=== PATIENT | female | born 1970 | race Caucasian/White ===

== ENCOUNTER → 2018-10-25 10:00 | Outpatient (CLI) | payer OTHER, SELFPAY ==
--- NOTE | 2018-10-25 10:05 | MM_ITS ---
MM Dig screening mamm BI w/CAD ORDERING PHYSICIAN : Lizzy Santana MD PATIENT AGE: 48 years GENDER: Female COMPARISON: March 2011 and September 2012 INDICATION: ITS.REASON: Routine Screening Mammogram TECHNIQUE: Standard CC and MLO images were obtained. R2 CAD reviewed. Additional axillary cc views both breast FINDINGS: Moderately dense inhomogeneous breast pattern. . Between the multiple views was see no persistent density of concern. Areas minimal density seen seen on on one view view dissipates on the on the other views including axillary cc view,. Overall breast densities & pattern keeping with previous studies... No suspicious calcifications. No suspicious nodule or density. No suspicious/or significant appearing new findings... Bilateral follow-up in one year adequate.. And suggest be emphasized and encouraged. IMPRESSION: Moderately dense heterogeneous breast but with no suspicious or discrete new areas of concern . Bilateral follow-up in one year recommended and should be encouraged BI-RADS Category: 2 Benign Finding(s) RECOMMENDED FOLLOW-UP: IMM - IMMEDIATE FOLLOW-UP RECOMMENDED (A letter has been sent to the patient regarding results of the study.)
== END ==
PROVIDERS: PCP Family Medicine; Visit Provider Obstetrics & Gynecology
DX: Z12.31 Encounter for screening mammogram for malignant neoplasm of breast (principal)
CPT/HCPCS: 77067

== ENCOUNTER → 2020-08-08 13:50 | Outpatient (CLI) | payer OTHER, SELFPAY ==
--- NOTE | 2020-08-08 13:59 | US_ITS ---
PROCEDURE: US SOFT TISSUE HEAD AND NECK CLINICAL INDICATION: LYMPHADENITIS, ACUTE COMPARISON: No exams were available for comparison FINDINGS: In the right aspect of the neck there is a hypoechoic nodule measuring 17 x 6 mm and may be due to a hypoechoic lymph node corresponding to the area of palpable concern. There is some internal blood flow. Other smaller nodes are present as well. On the left, there is a lymph node along the inferior aspect of the parotid measuring 6 mm. IMPRESSION: Bilateral cervical lymph nodes. The palpable abnormality on the right corresponds to a 17 x 6 mm hypoechoic nodule which may represent a lymph node Dictated by: Dave Manning MD 08/08/2020 17:44 Dave Manning MD in [place] 08/08/2020 17:44
== END ==
PROVIDERS: PCP Family Medicine; Visit Provider Nurse Practitioner
DX: L04.9 Acute lymphadenitis, unspecified (principal)
CPT/HCPCS: 76536

== ENCOUNTER → 2020-11-04 15:35 | Outpatient (CLI) | payer OTHER, SELFPAY ==
--- NOTE | 2020-11-04 15:38 | MM_ITS ---
PROCEDURE: MM DIG SCREENING MAMM BI W/CAD Referring Doctor: Lizzy Santana Patient Age:50Y CLINICAL INDICATION: Routine Screening Mammogram 50-year-old No new complaints and no hormones. Family history mother with breast cancer age 60 postmenopausal but COMPARISON: MG MAMMO SCREENING BILATERAL from 03/31/2011 MG MAMMO SCREENING BILATERAL from 10/04/2012 MG [facility] MM Dig screening mamm BI w/CAD from 10/25/2018 TECHNIQUE: Standard CC and MLO images were obtained. R2 CAD reviewed. Bilateral digital breast tomosynthesis included. FINDINGS: Breast of moderate density bilaterally with no new dominant nor suspicious mass CAD computer review highlights no areas of significant concern Right breast: No new areas of significant concern. Minor nodularity superior retroareolar region was better seen on previous studies no significant interval.. Left breast: No change since 2011 . Bilateral follow-up 1 year recommended IMPRESSION: . Stable bilateral mammogram with no new areas of significant concern. Moderately dense breast Bilateral follow-up 1 year BI-RAD Category: 2 Benign Finding(s) FOLLOW-UP: 1YR 1 Year Follow-up (A letter has been sent to the patient regarding results of the study.) Dictated by: Jose Gonzalez MD 11/06/2020 10:57 Jose Gonzalez MD in [place] 11/06/2020 10:57
== END ==
PROVIDERS: PCP Family Medicine; Visit Provider Obstetrics & Gynecology
DX: Z12.31 Encounter for screening mammogram for malignant neoplasm of breast (principal)
CPT/HCPCS: 77063; 77067

== ENCOUNTER → 2021-06-12 12:48 | Outpatient (CLI) | payer OTHER, SELFPAY ==
[2021-06-12 13:08] LABS: Basophils # 0.1 K/mm3 (0-0.2); Basophils % 1.3 % (0.1-2.0); Eosinophils # 0.1 K/mm3 (0.0-0.4); Eosinophils % 1.9 % (0.1-12.0); Hemoglobin 8.1 g/dL (12.2-16.2); Lymphocytes % 25.3 % (10-50); Mean Corpuscular HGB Conc 31.2 g/dL (31.8-35.4); Mean Corpuscular Volume 70.4 fl (81-99); Mean Platelet Volume 9.8 fl (7.4-10.4); Monocytes # 0.2 K/mm3 (0.1-1.0); Monocytes % 5.8 % (1.7-9.3); Neutrophils # 2.7 K/mm3 (1.8-7.8); Neutrophils % 65.8 % (37.0-80.0); Platelet Count 253 K/mm3 (142-424); Red Blood Count 3.69 M/mm3 (4.20-5.40); Red Cell Distribution Width 16.7 % (11.5-17.5)
[2021-06-13 05:10] LABS: FSH 10.1 mIU/mL (.)
== END ==
PROVIDERS: Visit Provider Obstetrics & Gynecology
DX: N92.0 Excessive and frequent menstruation with regular cycle (principal)
CPT/HCPCS: 36415; 83001; 85025

== ENCOUNTER → 2021-06-25 14:05 | Outpatient (CLI) | payer OTHER, SELFPAY ==
--- NOTE | 2021-06-25 14:06 | US_ITS ---
PROCEDURE: US TRANSVAGINAL CLINICAL INDICATION: post-menopausal bleeding COMPARISON: No exams were available for comparison FINDINGS: UTERUS: 10cm x 7cmx 6cm with a combined endometrial thickness of 13.7mm LEFT OVARY: [id number] with a volume of 45.2ml. There is a 4 cm left ovarian cyst which appears simple RIGHT OVARY: [id number] with a volume of 3.9ml. Heterogeneous echogenicity is present in the anterior aspect of the uterus measuring 2 cm suspicious for a fibroid. This is on the right. There is a small amount fluid in the cul-de-sac. IMPRESSION: 1. Thickened endometrium at 14 mm. 2. 2 cm uterine fibroid. 3. 4 cm left simple appearing ovarian cyst with a small amount of fluid in the cul-de-sac Dictated by: Dave Manning MD 06/25/2021 16:37 Dave Manning MD in [place] 06/25/2021 16:37
[2021-06-25 14:55] LABS: Basophils # 0.1 K/mm3 (0-0.2); Basophils % 1.4 % (0.1-2.0); Eosinophils # 0.1 K/mm3 (0.0-0.4); Eosinophils % 1.3 % (0.1-12.0); Hematocrit 24.6 % (37.0-47.0); Lymphocytes % 24.2 % (10-50); Mean Corpuscular HGB Conc 29.9 g/dL (31.8-35.4); Mean Corpuscular Hemoglobin 20.9 pg (27.0-31.2); Mean Corpuscular Volume 70.1 fl (81-99); Mean Platelet Volume 8.6 fl (7.4-10.4); Monocytes # 0.3 K/mm3 (0.1-1.0); Monocytes % 6.2 % (1.7-9.3); Neutrophils # 2.8 K/mm3 (1.8-7.8); Platelet Count 245 K/mm3 (142-424); Red Blood Count 3.52 M/mm3 (4.20-5.40); White Blood Count 4.2 K/mm3 (4.8-10.8)
[2021-06-25 15:14] LABS: Hemoglobin 7.4 g/dL (12.2-16.2)
== END ==
PROVIDERS: PCP Family Medicine; Visit Provider Obstetrics & Gynecology
DX: N95.0 Postmenopausal bleeding (principal)
CPT/HCPCS: 36415; 76830; 85025

== ENCOUNTER → 2021-06-25 14:34 | Outpatient (CLI) | payer OTHER, SELFPAY | PROVIDERS: Visit Provider Obstetrics & Gynecology | DX: N95.0 Postmenopausal bleeding (principal) | CPT/HCPCS: 36415; 85025 ==

== ENCOUNTER 2021-06-26 08:10 | Outpatient (CLI) | payer OTHER, SELFPAY ==
[2021-06-26] VITALS (19 sets, daily range): BP systolic 110–144; BP diastolic 37–69; PULSE 68–81; RESP 18; TEMP 36.3–36.8; O2SAT 100; BMI 24.5
[2021-06-26 15:03] LABS: Hematocrit 29.9 % (37.0-47.0); Hemoglobin 9.7 g/dL (12.2-16.2)
== END 2021-06-26 14:54 | disposition home or self-care (01) ==
LOC: INF 08:13
PROVIDERS: Visit Provider Obstetrics & Gynecology
DX: D50.0 Iron deficiency anemia secondary to blood loss (chronic) (principal)
CPT/HCPCS: 36430; 85014; 85018; 86850; P9016

== ENCOUNTER → 2021-07-04 11:11 | Outpatient (CLI) | payer OTHER, SELFPAY ==
[2021-07-04 11:20] LABS: Basophils # 0.1 K/mm3 (0-0.2); Basophils % 1.8 % (0.1-2.0); Eosinophils # 0.1 K/mm3 (0.0-0.4); Eosinophils % 1.5 % (0.1-12.0); Hematocrit 30.7 % (37.0-47.0); Hemoglobin 9.3 g/dL (12.2-16.2); Lymphocytes # 1.2 K/mm3 (0.7-4.5); Lymphocytes % 27.1 % (10-50); Mean Corpuscular HGB Conc 30.4 g/dL (31.8-35.4); Mean Corpuscular Hemoglobin 22.9 pg (27.0-31.2); Mean Corpuscular Volume 75.3 fl (81-99); Mean Platelet Volume 10.1 fl (7.4-10.4); Monocytes # 0.2 K/mm3 (0.1-1.0); Monocytes % 5.3 % (1.7-9.3); Neutrophils # 2.9 K/mm3 (1.8-7.8); Neutrophils % 64.3 % (37.0-80.0); Platelet Count 296 K/mm3 (142-424); Red Blood Count 4.08 M/mm3 (4.20-5.40); Red Cell Distribution Width 17.8 % (11.5-17.5); White Blood Count 4.6 K/mm3 (4.8-10.8)
== END ==
PROVIDERS: Visit Provider Obstetrics & Gynecology
DX: D50.0 Iron deficiency anemia secondary to blood loss (chronic) (principal)
CPT/HCPCS: 36415; 85025

== ENCOUNTER → 2021-07-09 12:11 | Outpatient (CLI) | payer OTHER, SELFPAY ==
[2021-07-09 13:03] LABS: Basophils % 0.8 % (0.1-2.0); Eosinophils % 0.6 % (0.1-12.0); Hematocrit 28.5 % (37.0-47.0); Hemoglobin 8.8 g/dL (12.2-16.2); Lymphocytes # 1.2 K/mm3 (0.7-4.5); Lymphocytes % 27.6 % (10-50); Mean Corpuscular HGB Conc 30.7 g/dL (31.8-35.4); Mean Corpuscular Hemoglobin 23.4 pg (27.0-31.2); Mean Corpuscular Volume 76.1 fl (81-99); Mean Platelet Volume 9.5 fl (7.4-10.4); Monocytes # 0.3 K/mm3 (0.1-1.0); Monocytes % 7.5 % (1.7-9.3); Neutrophils # 2.7 K/mm3 (1.8-7.8); Neutrophils % 63.4 % (37.0-80.0); Platelet Count 291 K/mm3 (142-424); Red Blood Count 3.75 M/mm3 (4.20-5.40); Red Cell Distribution Width 17.6 % (11.5-17.5); White Blood Count 4.2 K/mm3 (4.8-10.8)
== END ==
PROVIDERS: Visit Provider Obstetrics & Gynecology
DX: Z01.812 Encounter for preprocedural laboratory examination (principal); Z20.822 Contact with and (suspected) exposure to COVID-19; N95.0 Postmenopausal bleeding; N93.8 Other specified abnormal uterine and vaginal bleeding; N85.2 Hypertrophy of uterus; D25.9 Leiomyoma of uterus, unspecified; D50.0 Iron deficiency anemia secondary to blood loss (chronic)
CPT/HCPCS: 36415; 85025; U0003

== ENCOUNTER 2021-07-11 08:32 | Day surgery (SDC) | payer OTHER, SELFPAY ==
[2021-07-09 10:58] VITALS: BMI 25.4
[2021-07-11] VITALS (12 sets, daily range): BP systolic 116–136; BP diastolic 56–77; PULSE 67–87; RESP 16–18; TEMP 36.3–43; O2SAT 96–100
[2021-07-11 08:50] LABS: Urine Pregnancy, HCG Qual. Negative (Negative)
--- NOTE | 2021-07-11 09:09 | HMH.ANESCL ---
[facility] Anesthesia Checklist - Patient Identification Patient Identification: Arm Band - Structural Data Admitted From: Home Planned Operative Procedure/s: Hysteroscopy, D&C, Novasure/Myosure Ablation Consent for Planned Operative Procedure(s) Verified: Yes Verified Documents: Surgical Consent, History and Physical - NPO Status Verified Time NPO: 00:00 - Additional verifications Anesthesia Reactions: No Hx Blood Transfusions: Yes Blood Transfusion Reaction: No - Airway Assessment C-Spine Mobility Assessed: Yes (mp2) TMJ Mobility Assessed: Yes Dentition: Good Dentition - Neurological Assessment Level of Consciousness: Awake, Alert - Anesthesia Plan Anesthesia Risk discussed: Yes Anesthesia Plan: Verified ASA Class: I Anesthesia Type: General [facility] History I have reviewed the patient's past medical history: Yes Medical History: Reports:: Anxiety Denies:: Cancer, Depression, Diabetes Mellitus Type 1, Diabetes Mellitus Type 2, Hyperlipidemia, Hypertension, Migraine, MRSA, Seizures *Have you ever received a pneumonia vaccine?: No *Have you received a flu vaccine this season?: No Other Medical History: Reports: Anemia. Denies: Blood Transfusion Reaction Anesthesia experience/problems:: nac Other Surgeries: Yes: , Hernia Repair, Other Amputation: No Fractures: No - *Social History Last grade of school completed: Advanced degree Smoking Status: Never smoker Alcohol Intake: current Alcohol Intake Frequency:: holidays/special occasions only Substance Use Type: denies use *Occupational Status:: employed Housing: house Household Members: spouse, children *Travel in the last 8 weeks: Outside the [facility] - Psychiatric History Pschychiatric History:: Reports:: Anxiety Denies:: Depression Family Hx:: Cancer
--- NOTE | 2021-07-11 11:18 | HMH.ANESI ---
[facility] Anesthesia Record Part I Intake, IV Amount: 1,000 Estimated blood loss (mL): 10 Urine output (mL): 0 Blood Pressure: 134/77 SaO2: 96 Pulse Rate: 80 Respiratory Rate: 16 Temperature: 98 F Patient is:: Drowsy, Stable Stable to PACU at:: 11:15
--- NOTE | 2021-07-11 12:12 | SUR.PHASEII ---
PT WILL NOT TALK OR ANSWER MY QUESTIONS VERY WELL. ASK PT ABOUT HER PAIN AND SHE LOOKS LIKE SHE IS IN PAIN BUT SAYS SHE'S OKAY. REFUSING ANYTHING ELSE FOR PAIN AT THIS TIME. WILL NOT RATE PAIN AT THIS TIME. WARM COMPRESS APPLIED TO ABDOMEN. DISCHARGE INSTRUCTIONS REVIEWED WITH PT AND , VERBALIZED UNDERSTANDING.
--- NOTE | 2021-07-11 12:23 | SUR.PHASEII ---
PT TEARFUL BUT WILL NOT VERBALIZE WHY. HAVE OFFERED PAIN MEDS BUT REFUSED OTHER THAN TYLENOL/IBUPROFEN. VSS. NO VAG BLEEDING, IV REMOVED AND BELONGINGS GIVEN TO PT TO GET DRESSED BUT PT REMAINS SITTING HOLDING THE BAG OF CLOTHES. AT BEDSIDE AND NOT PROVIDING ANY SUPPORT OR HELP TO PT, JUST SITTING OVER IN THE CORNER OF THE ROOM. WILL CONTINUE SUPPORT AND OFFER ASSISTANCE ABLE.
--- NOTE | 2021-07-11 12:39 | SUR.PHASEII ---
PT CONTINUES TO LAY IN BED. ASKED PT IF HER PAIN WAS ANY BETTER, WOULDN'T SPEAK BUT MADE A GESTURE WITH FINGERS FOR A LITTLE. ADKED HER IF SHE NEEDED ANYTHING AND SHOOK HER HEAD NO. WILL CONTINE TO MONITOR.
--- NOTE | 2021-07-11 14:02 | P.PN_ITS ---
[facility] Anesthesia Record Part II Discharge Time: 11:45 Destination: Surgical Day Care (OP Surgery) PACU nurse assessment reviewed?: Yes Patient Condition:: Good Anesthesia Complications:: None Swallowing reflex intact?: Yes Cyanosis?: No Blood Pressure: 116/70 Pulse Rate: 69 Temperature: 97.4 F Mental Status: Alert & Oriented Pain level:: 3 Nausea and/or vomitting:: None Intake, IV Amount: 0
--- NOTE | 2021-07-11 16:57 | HMH.OPNOTE ---
Date of procedure: 07/11/21 Pre-op Diagnosis:: dysfunctional uterine bleeding anemia due to chronic blood loss Post-op Diagnosis:: same Procedure performed:: D&C Hysteroscopy Myosure resection of endometrial polyp Novasure endometrial ablation Surgeon:: Lizzy Santana MD EMPLOYEE COMMUNICATIONS COORDINATOR:: Rian Toney Anesthesia: GETA Estimated blood loss (mL): 5 Operative findings:: endometrial polyp anterior uterine cavity Operative note:: The patient was taken to the operating room and general anesthesia was administered. She was prepped/draped in lithotomy position. The anterior lip of the cervix was grasped with a single tooth tenaculum and the cervix was dilated with [place] dilators of serially increasing size until the external os was able to accomodate the Myosure hysteroscope. The hysteroscope was advanced through the cervix and into the uterine cavity, which was distended with LR. Once the uterus was sufficiently distended, the cavity was evaluated and revealed a small polyp on the anterior uterine wall. The Myosure was inserted into the hysteroscope and the polyp was resected successfully and without complication or significant fluid deficit. After the conclusion of this procedure, the Myosure and hysteroscope were removed from the uterus. The uterine cavity sounded to a length of 5cm. The Novasure was inserted through the cervix and expanded to fit the width of the uterus, with a width of 4.6cm. After a successful cavity assessment, the device was deployed and the endometrial ablation was completed in 81 seconds. Once the device had turned off, the Novasure was removed from the uterus and the hysteroscope was reinserted into the uterine cavity. The cavity appeared diffusely cauterized. The hysteroscope was removed from the uterus and all instruments removed from the vagina. The tenaculum site was hemostatic. All sponge/lap/needle/instrument counts correct x2. Total EBL: 5 cc. The patient was taken out of lithotomy position, extubated and taken to the PACU in stable condition. Condition: stable Disposition: PACU Specimens:: endometrial curettings Complications:: none
== END 2021-07-11 13:05 | disposition home or self-care (01) ==
LOC: OR 08:33
PROVIDERS: PCP Family Medicine; Visit Provider Obstetrics & Gynecology
PROC: (CPT 58563; principal; 2021-07-11 10:00)
DX: N95.0 Postmenopausal bleeding (principal); N93.8 Other specified abnormal uterine and vaginal bleeding; N84.0 Polyp of corpus uteri; D50.0 Iron deficiency anemia secondary to blood loss (chronic); F41.9 Anxiety disorder, unspecified; Z80.3 Family history of malignant neoplasm of breast
CPT/HCPCS: 58563; 81025; 96374; J2405